=== PATIENT | male | born 1960 | race Caucasian/White ===

== ENCOUNTER 2017-08-15 09:43 | Emergency (ER) | payer MEDICARE, OTHER ==
[~2017-08-15] VITALS: Ht 165.1 cm; Wt 77.1 kg
[2017-08-15] MEDS ORDERED: LEVFLO500 PO (10:07)
== END 2017-08-15 10:18 | disposition home or self-care (01) ==
LOC: ER 09:43
DX: S91.332A Puncture wound without foreign body, left foot, initial encounter (principal); Z23 Encounter for immunization; Z88.1 Allergy status to other antibiotic agents; Z87.891 Personal history of nicotine dependence; W45.0XXA Nail entering through skin, initial encounter
CPT/HCPCS: 90714